=== PATIENT | male | born 1990 | race Caucasian/White ===

== ENCOUNTER 2024-05-05 09:24 | Emergency (ER) | payer OTHER, SELFPAY ==
[2024-05-05 09:33] VITALS: BP 139/105
--- NOTE | 2024-05-05 09:59 | ED.GENMED ---
History of Present Illness
General
Chief Complaint: Withdrawal Symptoms
Source: patient
Exam Limitations: none
Time Seen by Provider: 05/05/24 09:50
History of Present Illness
History of Present Illness:
See MDM
Past History
Past History
ED Past Medical History: Psychiatric
ED Past Surgical History: None
Social History
Tobacco: Non-smoker
Alcohol: Daily
Phy Exam
Physical Exam
Physical Exam:
See MDM
Scores
Withdrawal Assessment of Alcohol
Withdrawal Assessment Completed?: Yes
Nausea and Vomiting: No nausea and no vomiting
Tactile Disturbances: None
Tremor: Moderate, with patient's arms extended
Auditory Disturbances: Not present
Paroxysmal Sweats: No sweat visible
Visual Disturbances: Not present
Anxiety: Mild anxiety
Headache, Fullness in Head: Not present
Agitation: Normal activity
Orientation and clouding of sensorium: Oriented and can do serial additions
Total CIWA Score: 5
Alcohol Withdrawal Medication Recommendation: Equal to MSAS Score 0-4. Monitor & re-assess q2hrs, NO MEDICATION NEEDED
Course
Orders/Labs/Results
Orders:
Orders
05/05/24 09:59
Lorazepam [Ativan] 1 mg PO NOW STA
05/05/24 10:34
Lorazepam [Ativan] 1 mg PO NOW STA
Vital Signs
Initial and Last Documented VS:
Initial Vital Signs
Temp Pulse Resp BP Pulse Ox
97.8 F 84 18 139/105 97
05/05/24 09:33 05/05/24 09:33 05/05/24 09:33 05/05/24 09:33 05/05/24 09:33
Last Documented Vital Signs
Temp Pulse Resp BP Pulse Ox
97.8 F 81 16 139/105 97
05/05/24 09:33 05/05/24 10:00 05/05/24 10:00 05/05/24 09:33 05/05/24 10:00
MDM/Problems Addressed
Differential Diagnosis Includes:
HPI and MDM Narrative:
34-year-old male presenting for evaluation of alcohol withdrawal. Patient states he normally drinks about 15 drinks a day. His last drink was about 2 days ago. Patient also states his anxiety and depression are increased. He does acknowledge
that his anxiety and depression are related to his alcohol abuse. He presents to the emergency department with family. Patient lives in [place] and he is planning on going back to [place] soon. Patient is not interested in speaking with the crisis
team. Patient is more interested in his alcohol withdrawal. On exam, patient is anxious and tremulous. Will give p.o. Ativan and have the alcohol counselor go over outpatient options. Patient does not believe he needs inpatient
Physical exam
General: Mildly uncomfortable, fidgeting
HEENT: protecting airway
Neck: appears supple
CV: No evidence of cyanosis
Resp: No accessory muscle use
Abd: Non-distended
Extremities: No deformities
Neuro: alert. Tremulous
Psych: Mildly anxious
Skin: Intact
Problems Addressed including Acute and Chronic Conditions affecting care:
1. Alcohol withdrawal
Acuity: acute
Prognosis: stable
Details: Will give p.o. Ativan and have alcohol counselor evaluate and provide outpatient options
Updates
On reassessment after Ativan, patient states he is feeling much better
Differential Diagnosis (but not limited to): Alcohol withdrawal, anxiety, depression
Testing considered: Blood work
Drug therapy (if applicable): OTC meds, please see d/c instruction regarding Rx drugs
Amount and/or Complexity of Data Reviewed
Clinical info obtained from: Patient
External data reviewed: N/A
Labs I independently reviewed (but not limited to): N/A
Radiology: N/A
Pulse Ox: not hypoxic
EKG independently reviewed: N/A
Correctional Officer Chief: N/A
Critical Care: N/A
Risk of Complication:
Social Determinants of health: Good social support
Discussed with other providers: N/A
Escalation of Care includes Admit/Obs: After being observed in the Emergency Department, pt stable for discharge.
Occasional wrong word or 'sound a like' substitutions may have occurred due to the inherent limitations of voice recognition software. Read the chart carefully and recognize, using context, where substitutions have occurred.
*Critical Care Note
Total Time (30-74mins, 75-104mins- exclusive of procedures): Not Applicable
ED Attending Note
-
Portions of this chart may have been created with voice recognition software.� Occasional wrong word or��sound alike� substitutions may have occurred due to the inherent limitations of voice recognition software.
Discharge Plan
Departure
Patient Disposition: Home (Routine Discharge)
Date of Disposition: 05/05/24
Time of Disposition: 15:18
Patient with high blood pressure during this ER visit?: Yes
Discharge Problem:
Alcohol withdrawal
Instructions: Alcohol Withdrawal (DC)
Prescriptions:
New
lorazepam [Ativan] 1 mg tablet
1 mg PO TID PRN (Reason: alcohol withdrawal) Qty: 14 0RF
Referrals:
PRIVATE,PHYSICIAN [Family Provider] -
Activity Restrictions/Additional Instructions:
Please use the Ativan as needed for withdrawal symptoms. Please return for worsening symptoms.
Interventions
Interventions:
*Risk Screen - Suicide Last Done: 05/05/24 09:26
*General Assessment Last Done: 05/05/24 09:33
*Neglect/Abuse Screening Last Done: 05/05/24 09:52
ED- Fall Risk Assessment Last Done: 05/05/24 10:11
*ED COVID-19 Vaccine History Last Done: 05/05/24 09:33
ED- Neurological Assessment Last Done: 05/05/24 10:11
ED-Psychological Assessment Last Done: 05/05/24 10:11
Discharge Date and Time
Print Language: CROATIAN
[2024-05-05] MEDS: ATIVAN 1 MG PO ×2 (10:06→10:37)
[2024-05-05 10:08] VITALS: BMI 29.0
[2024-05-05 16:07] VITALS: BP 134/74
== END 2024-05-05 17:56 | disposition home or self-care (01) ==
LOC: EMR 09:24
PROVIDERS: EMERGENCY PHYSICIAN Student in an Organized Health Care Education/Training Program
DX: F10.239 Alcohol dependence with withdrawal, unspecified (principal); F41.9 Anxiety disorder, unspecified; F32.A Depression, unspecified
CPT/HCPCS: 99283